=== PATIENT | female | born 1990 | race Hispanic/Latino ===

== ENCOUNTER 2017-07-25 09:30 | Emergency (ER) | payer BC ==
[2017-07-25 09:34] VITALS: BP 152/78; PULSE 98; RESP 16; TEMP 96; O2SAT 100
[2017-07-25 09:35] VITALS: BMI 20.5
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
== END 2017-07-25 10:31 | disposition home or self-care (01) ==
LOC: H.ER 09:30
DX: F41.9 Anxiety disorder, unspecified (principal)

== ENCOUNTER 2018-06-26 17:47 | Emergency (ER) | payer BC ==
[2018-06-26 17:52] VITALS: BP 137/88; PULSE 87; RESP 16; TEMP 98; O2SAT 98
[2018-06-26 17:53] VITALS: BMI 21.4
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
== END 2018-06-26 19:08 | disposition home or self-care (01) ==
LOC: H.ER 17:47
DX: S39.93XA Unspecified injury of pelvis, initial encounter (principal)